=== PATIENT | female | born 2005 | race African-American/Black ===

== ENCOUNTER 2024-06-04 11:07 | Inpatient (IN) ==
[2024-06-04 11:48] LABS: Hematocrit (blood only) 34.2 % (37.0-47.0); Hemoglobin 12.3 g/dl (12.0-16.0); Mean Corpuscular Hemoglobin 24.6 pg (25.0-34.0); Mean Corpuscular Volume 68.5 fL (80.0-100.0); Platelet Count 159 K/uL (130-400); RDW Coefficient of Variation 18.6 % (11.5-14.5); RDW Standard Deviation 45.7 fL (36.4-46.3); Red Blood Count 4.99 M/uL (4.20-5.40); White Blood Count 8.07 K/ul (4.8-10.8)
[2024-06-04 12:11] LABS: Alanine Aminotransferase 6 U/L (7-52); Albumin Globulin Ratio 1.3 (0.9-2); Albumin Level 4.5 gm/dl (3.4-5.0); Alkaline Phosphatase 41 U/L (34-104); Anion Gap 5 (3-11); Aspartate Aminotransferase 15 U/L (13-39); BUN Creatinine Ratio 12.7 (10-20); Basophils # (auto) 0.04 K/uL (0.00-0.20); Basophils % (auto) 0.5 %; Bilirubin,Total 2.2 mg/dl (0.2-1.0); Blood Urea Nitrogen 9 mg/dl (6-23); Calcium 9.5 mg/dl (8.6-10.3); Carbon Dioxide 26 mmol/L (21-32); Chloride 107 mmol/L (98-107); Creatinine Clr Calc Pharmacy 153.9 ml/min; Eosinophils # (auto) 0.05 K/uL (0.00-0.50); Eosinophils % (auto) 0.6 %; Globulin 3.6 gm/dl (2.5-4.0); Glucose 92 mg/dl (70-99(Fasting)); Immature Granulocytes # (auto) 0.03 K/uL (0.01-0.20); Immature Granulocytes % (auto) 0.4 %; Lipase 14 U/L (11-82); Lymphocytes # (auto) 1.86 K/uL (1.20-3.40); Microcytosis Present; Monocytes # (auto) 0.41 K/uL (0.11-0.59); Monocytes % (auto) 5.1 %; Neutrophils # (auto) 5.68 K/uL (1.40-6.50); Neutrophils % (auto) 70.4 %; Polychromasia 1+; Sodium 138 mmol/L (136-145); Target Cells 3+; Total Protein 8.1 gm/dl (6.0-8.3)
[2024-06-04 12:17] LABS: Troponin I High Sensitivity < 2.3 pg/ml (0-14)
--- NOTE | 2024-06-04 13:11 | Electrocardiogram Report ---
Test Reason : Blood Pressure : */* mmHG Vent. Rate : 86 BPM Atrial Rate : 86 BPM P-R Int : 132 ms QRS Dur : 78 ms QT Int : 352 ms P-R-T Axes : 63 49 48 degrees QTcB Int : 421 ms Sinus rhythm with occasional Premature ventricular complexes Otherwise normal ECG No previous ECGs available Confirmed by Joaquín Crews ([id number]) on 06/04/2024 1:11:34 PM Referred By: Confirmed By: Joaquín Crews
--- NOTE | 2024-06-04 13:44 | XRay Report ---
XR chest 2V PA/lateral CLINICAL HISTORY: CHEST PAIN, SICKLE CELL COMPARISON STUDY: None FINDINGS: A single view frontal projection chest is submitted for review. There is no lateral include d with the study. Examination demonstrates no acute cardiopulmonary process. There is no airspace opa city or pleural effusion. There is no pneumothorax. Heart size and pulmonary vascularity are unremark able. IMPRESSION: Negative single view chest ACT 112: Negative or not required by law. Electronically signed by: Francisca Wyman M.D. 06/04/2024 1:43 PM
[2024-06-04 14:26] LABS: Pregnancy Test, Serum Negative (Negative)
[2024-06-04] MEDS: KETOROLAC TROMETHAMINE 15 MG/ML VIAL IV ONE ×2 (14:42→16:35)
--- NOTE | 2024-06-04 16:04 | Emergency Department Note ---
Impression & Plan Sickle cell pain crisis, Chest pain, Hyperbilirubinemia ED Provider Note NAME: ALEJANDRO VAN AGE: 18 SEX: F : 2005 ARRIVES VIA: Walk-In INFORMANT: Patient, friends at bedside ED PROVIDER(S): Frandy Sanchez MD CHIEF COMPLAINT: Chest pain MEDICAL DECISION MAKING: Patient presents due to concern for chest pains. IV was established and blood work was obtained. No significant improvement after IV Toradol. I did review the patient's pain plan which recommended Dilaudid Benadryl Zofran fluids Toradol and Tylenol. I did order fluids Dilaudid Zofran Toradol and Tylenol. Benadryl was just for itching as needed. Patient had complained of some left upper abdominal pain. The patient is not peritonitic has no other further pain. Patient does have prior history of splenomegaly. The patient was reassessed. The patient was offered additional pain medication but declined at this time and stated that she wanted to complete her IV fluids. The patient's blood work shows a normal white count hemoglobin and platelet count. Patient's kidney functions unremarkable with normal electrolytes. Troponin negative. Bilirubin of 2.2. The patient was able to access her prior records from admission at [facility] which showed a bilirubin 1.6. The patient was amenable to trying a p.o. oxycodone as this would be something that she would use for pain control at home. Patient does feel as though her symptoms are consistent with her pain crises. Chest x-ray is clear. Patient was reassessed and still was having pain so was ordered additional 1 mg of IV Dilaudid and additional IV fluids. I was asked to assess the patient at the bedside as the patient was having worsening pain. Patient with clear breath sounds bilaterally. Given the patient's significant discomfort with the pain in her back a CT angiography of the chest was ordered. Patient was ordered additional IV Dilaudid 1 mg. Patient did have improvement in her symptoms. I did inform the patient's mother of the plan of care and she was comfortable with this plan of care. The patient did develop some dizziness and nausea. The patient was ordered additional IV fluids and IV Benadryl and Zofran. Patient CT angiography of the chest is nondiagnostic for PE. No definite airspace consolidation. No evidence of obvious dissection noted no evidence of obvious aneurysm noted. I did inform the patient of the findings. Given the patient's required repeated doses of IV pain medication to believe the patient would benefit from admission at this time. I did speak the on-call hospital service Dr. Pedraza and the patient was admitted to the medicine service. Discussion w/ other healthcare providers: Deonna Wang PA-C and Dr. Pedraza inpatient medicine service Prior /Outside records reviewed: None Differential diagnosis: Cardiac ischemia, aortic dissection, pulmonary embolism, pneumothorax, pneumonia, pericarditis, myocarditis, GERD, cholecystitis, pancreatitis, musculoskeletal, as well as other pathologies were considered. Diagnostics, as interpreted by me: ECG: Sinus with PVCs, rate of 86, normal intervals, normal axis, no obvious ST elevations. No prior EKGs for comparison. Cardiac monitoring: An order was placed for continuous cardiac monitoring. The monitor shows a rate of 87 with sinus rhythm. Patient was placed on pulse oximetry Medical decision rules: None Imaging studies: I informally interpreted the patient's chest x-ray does not show obvious pneumonia or pneumothorax with formal report to follow. HPI: Patient presents due to concern for chest pains. Patient reports that chest pain has been ongoing since yesterday. Has been fairly constant localized in the left chest but seem to be moving to the middle of the chest. Patient also does have some left upper quadrant pain. Patient reports that she does have a history of splenomegaly. Patient states that she did take some ibuprofen at home but without significant improvement in symptoms. The patient does have a known history of sickle cell disease currently off of hydroxyurea which was at the discretion of her visual basic programmer with whom she follows at [facility] in [facility]. Patient denies any cough or fever. Patient also does have some muscle aches. Patient denies any known sick contacts and recent travel. No cough or fever. Patient reports that this does feel similar to her typical pain crises. The patient states the pain is somewhat reproducible. No prior history of heart or lung disease. No leg swelling or calf pain. No recent surgeries procedures or hospitalizations and no recent long car plane travel. Patient does follow with a Dr. Fair with hematology. Patient reportedly had negative mono as well as viral testing completed at [facility] and was referred here. PAST MEDICAL HISTORY: Sickle cell disease, splenomegaly PAST SURGICAL HISTORY: No pertinent past surgical history SOCIAL HISTORY: [employer] student. Denies alcohol tobacco or drug use. HOME MEDICATIONS: See Below ALLERGIES: See Below VITALS: See Below PHYSICAL EXAMINATION: GENERAL: NAD, non-toxic. Wearing glasses. EYE EXAM: Normal conjunctiva. PERRL, no anisocoria and EOM's grossly intact w/o pain. OROPHARYNX: Moist mucus membranes, grossly normal dentition. NECK: Trachea midline, no stridor. Supple, no nuchal rigidity, no adenopathy, non-tender. No signs of meningismus. FROM of the neck with good chin to chest and neck extension. Chest: Mild reproducible sternal pain without obvious crepitus. LUNGS: Clear to auscultation. Normal chest wall mechanics. HEART: NSR, no MRG. ABDOMEN: Abdomen soft, left upper quadrant tenderness without epigastric or lower abdominal pain, no masses, no rebound or guarding. BACK: No CVA TTP. SKIN: No rashes and no bruising. UPPER EXTREMITIES: Upper extremities are grossly normal. LOWER EXTREMITIES: Grossly normal, no edema. Negative Homans' sign bilaterally. NEURO EXAM: A&O x3, cranial nerves II-XII grossly intact, normal speech, moves all 4 extremities. Past Med/Surg History Problem List (Updated 06/05/24 @ 00:01 by Frandy Sanchez MD) Hyperbilirubinemia (Acute) Chest pain (Acute) Sickle cell pain crisis (Acute) Social History Smoking Status: Never smoker Preferred Language: [place]ralt[place] Feels Safe at Home: Yes Allergies Allergies Allergy/AdvReac Type Severity Reaction Status Date / Time No Known Allergies Allergy Unverified 06/04/24 14:43 Results & Data (ED) Vital Signs Vital Signs - 24 hr 06/04/24 11:17 06/04/24 15:37 06/04/24 15:37 Temperature 36.7 C Temperature Source Temporal Artery Scan Pulse Rate 91 H Pulse Rate [Apical] 95 H Pulse Rhythm [Apical] Respiratory Rate 18 18 Respiratory Effort / Characteristics Non-Labored Spontaneous Non-Labored Spontaneous Respiratory Depth Normal Normal Respiratory Pattern Regular Regular Blood Pressure [Right Arm] 133/72 Blood Pressure Mean [Right Arm] 92 Blood Pressure Position [Right Arm] Pulse Oximetry 97 96 96 Oxygen Delivery Method Room Air Room Air Room Air Oxygen Flow Rate 0 Sepsis Recent Fever Within 48 Hours No Sepsis New/Unexplained Change in Mental Status N/A Sepsis Action Taken by Nursing No Action Required 06/04/24 15:37 06/04/24 15:57 06/04/24 17:00 Temperature Temperature Source Pulse Rate 86 Pulse Rate [Apical] 87 Pulse Rhythm [Apical] Respiratory Rate 18 Respiratory Effort / Characteristics Non-Labored Spontaneous Respiratory Depth Normal Respiratory Pattern Regular Blood Pressure [Right Arm] 130/96 Blood Pressure Mean [Right Arm] 107 Blood Pressure Position [Right Arm] Pulse Oximetry 96 96 Oxygen Delivery Method Room Air Room Air Oxygen Flow Rate Sepsis Recent Fever Within 48 Hours Sepsis New/Unexplained Change in Mental Status Sepsis Action Taken by Nursing 06/04/24 18:59 06/04/24 19:29 06/04/24 20:03 Temperature Temperature Source Pulse Rate 94 H Pulse Rate [Apical] 108 H 84 Pulse Rhythm [Apical] Respiratory Rate 16 18 Respiratory Effort / Characteristics Non-Labored Spontaneous Non-Labored Spontaneous Respiratory Depth Normal Normal Respiratory Pattern Blood Pressure [Right Arm] 126/71 147/109 H Blood Pressure Mean [Right Arm] 89 121 Blood Pressure Position [Right Arm] Lying Lying Pulse Oximetry 100 98 Oxygen Delivery Method Room Air Room Air Oxygen Flow Rate Sepsis Recent Fever Within 48 Hours Sepsis New/Unexplained Change in Mental Status Sepsis Action Taken by Nursing 06/04/24 21:32 06/04/24 22:29 06/04/24 23:33 Temperature Temperature Source Pulse Rate 104 H Pulse Rate [Apical] 96 H 108 H Pulse Rhythm [Apical] Regular Respiratory Rate 16 20 Respiratory Effort / Characteristics Non-Labored Spontaneous Non-Labored Spontaneous Respiratory Depth Normal Normal Respiratory Pattern Blood Pressure [Right Arm] 149/91 H 123/91 Blood Pressure Mean [Right Arm] 110 101 Blood Pressure Position [Right Arm] Pulse Oximetry 96 98 Oxygen Delivery Method Room Air Room Air Oxygen Flow Rate Sepsis Recent Fever Within 48 Hours Sepsis New/Unexplained Change in Mental Status Sepsis Action Taken by [facility] Medications Current Medication List: was personally reviewed by me Laboratory Data Attestation: I reviewed the patient's lab results. 06/04/24 11:33 06/04/24 11:33 Lab Results 06/04/24 Range/Units 11:33 WBC 8.07 (4.8-10.8) K/ul RBC 4.99 (4.20-5.40) M/uL Hgb 12.3 (12.0-16.0) g/dl Hct 34.2 L (37.0-47.0) % MCV 68.5 L (80.0-100.0) fL MCH 24.6 L (25.0-34.0) pg MCHC 36.0 (32.0-36.0) g/dL RDW Std Deviation 45.7 (36.4-46.3) fL RDW Coeff of Eddie 18.6 H (11.5-14.5) % Plt Count 159 (130-400) K/uL Immature Gran % (Auto) 0.4 % Neut % (Auto) 70.4 % Lymph % (Auto) 23.0 % [place] % (Auto) 5.1 % Eos % (Auto) 0.6 % Baso % (Auto) 0.5 % Neut # (Auto) 5.68 (1.40-6.50) K/uL Lymph # (Auto) 1.86 (1.20-3.40) K/uL [place] # (Auto) 0.41 (0.11-0.59) K/uL Eos # (Auto) 0.05 (0.00-0.50) K/uL Baso # (Auto) 0.04 (0.00-0.20) K/uL Immature Gran # (Auto) 0.03 (0.01-0.20) K/uL Polychromasia 1+ Microcytosis Present Target Cells 3+ Sodium 138 (136-145) mmol/L Potassium 4.0 (3.5-5.1) mmol/L Chloride 107 (98-107) mmol/L Carbon Dioxide 26 (21-32) mmol/L Anion Gap 5 (3-11) BUN 9 (6-23) mg/dl Creatinine 0.71 (0.6-1.2) mg/dl Est Cr Clr Drug Dosing 153.9 ml/min eGFR 125.53 BUN/Creatinine Ratio 12.7 (10-20) Glucose 92 (70-99(Fasting)) mg/dl Calcium 9.5 (8.6-10.3) mg/dl Total Bilirubin 2.2 H (0.2-1.0) mg/dl AST 15 (13-39) U/L ALT 6 L (7-52) U/L Alkaline Phosphatase 41 (34-104) U/L Troponin I High Sens < 2.3 (0-14) pg/ml Total Protein 8.1 (6.0-8.3) gm/dl Albumin 4.5 (3.4-5.0) gm/dl Globulin 3.6 (2.5-4.0) gm/dl Albumin/Globulin Ratio 1.3 (0.9-2) Lipase 14 (11-82) U/L HCG, Qual Negative (Negative) Administered Medications Discontinued Medications Acetaminophen (Acetaminophen 500 Mg Tab) 1,000 mg PO NOW STA Stop: 06/04/24 16:22 Last Admin: 06/04/24 16:35 Dose: 1,000 mg Documented By: JI Diphenhydramine HCl (Diphenhydramine 50 Mg/Ml Vial) 12.5 mg IV NOW STA Stop: 06/04/24 21:49 Last Admin: 06/04/24 21:51 Dose: 12.5 mg Documented By: LAN Hydromorphone HCl (Hydromorphone Inj 1 Mg/Ml Syringe) 1 mg IV NOW STA Stop: 06/04/24 16:22 Last Admin: 06/04/24 16:35 Dose: 1 mg Documented By: JI Hydromorphone HCl (Hydromorphone Inj 1 Mg/Ml Syringe) 1 mg IV NOW STA Stop: 06/04/24 19:58 Last Admin: 06/04/24 20:01 Dose: 1 mg Documented By: LAN Hydromorphone HCl (Hydromorphone Inj 1 Mg/Ml Syringe) 1 mg IV NOW STA Stop: 06/04/24 20:46 Last Admin: 06/04/24 20:50 Dose: 1 mg Documented By: ALN Sodium Chloride (Nss) 1,000 mls @ 999 mls/hr IV .Q1H1M ONE Stop: 06/04/24 17:21 Last Infusion: 06/04/24 18:56 Dose: Infused Documented By: Admin: 06/04/24 16:36 Dose: 999 mls/hr Documented By: JI Sodium Chloride (Nss) 500 mls @ 999 mls/hr IV .Q31M ONE Stop: 06/04/24 20:27 Last Infusion: 06/04/24 20:39 Dose: Infused Documented By: Admin: 06/04/24 20:01 Dose: 999 mls/hr Documented By: LAN Sodium Chloride (Nss) 1,000 mls @ 999 mls/hr IV .Q1H1M ONE Stop: 06/04/24 22:48 Last Infusion: 06/04/24 22:55 Dose: Infused Documented By: Admin: 06/04/24 21:51 Dose: 999 mls/hr Documented By: LAN Ketorolac Tromethamine (Ketorolac Tromethamine 15 Mg/Ml Vial) 10 mg IV NOW ONE Stop: 06/04/24 13:58 Last Admin: 06/04/24 14:42 Dose: 10 mg Documented By: JAIRON Ketorolac Tromethamine (Ketorolac Tromethamine 15 Mg/Ml Vial) 20 mg IV NOW ONE Stop: 06/04/24 16:22 Last Admin: 06/04/24 16:35 Dose: 20 mg Documented By: JI Ondansetron HCl (Ondansetron Inj 2 Mg/Ml 2 Ml Vial) 4 mg IV NOW STA Stop: 06/04/24 19:05 Last Admin: 06/04/24 19:08 Dose: 4 mg Documented By: LAN Ondansetron HCl (Ondansetron Inj 2 Mg/Ml 2 Ml Vial) 4 mg IV NOW STA Stop: 06/04/24 21:49 Last Admin: 06/04/24 21:51 Dose: 4 mg Documented By: LAN Oxycodone HCl (Oxycodone Hcl Ir 5 Mg Tab (Immediate Release)) 5 mg PO NOW STA Stop: 06/04/24 18:47 Last Admin: 06/04/24 18:59 Dose: 5 mg Documented By: LAN Imaging Data Radiologist's Impression: Chest X-Ray 06/04/24 13:02 XR chest 2V PA/lateral CLINICAL HISTORY: CHEST PAIN, SICKLE CELL COMPARISON STUDY: None FINDINGS: A single view frontal projection chest is submitted for review. There is no lateral included with the study. Examination demonstrates no acute cardiopulmonary process. There is no airspace opacity or pleural effusion. There is no pneumothorax. Heart size and pulmonary vascularity are unremarkable. IMPRESSION: Negative single view chest ACT 112: Negative or not required by law. Electronically signed by: Francisca Wyman M.D. 06/04/2024 1:43 PM Chest CTA 06/04/24 20:45 Exam(s): CTA CHEST EXAM: CT Angiography Chest With Intravenous Contrast CLINICAL HISTORY: Evaluate for PE. TECHNIQUE: Axial computed tomographic angiography images of the chest with intravenous contrast. CTDI is 24.386 mGy and DLP is 678.56 mGy-cm. Automated exposure control was utilized for the study. A dose lowering technique was utilized adhering to the principles of ALARA. MIP reconstructed images were created and reviewed. COMPARISON: No relevant prior studies available. FINDINGS: Limitations: There is diffuse respiratory artifact, which degrades image quality throughout the examination. Pulmonary arteries: The examination is essentially nondiagnostic for evaluation of potential pulmonary embolism given the heterogeneous enhancement pattern of the pulmonary artery tree and extensive respiratory artifact. Aorta: No acute findings. Motion artifact in the ascending thoracic aorta. No thoracic aortic dissection is identified. No thoracic aortic aneurysm. Lungs: No definite focal airspace consolidation, accounting for limitations with respiratory artifact. Pleural space: Unremarkable. No significant effusion. No pneumothorax. Heart: The cardiac chambers are within normal limits. No pericardial effusion. Bones/joints: No acute fracture. No dislocation. Soft tissues: Unremarkable. Lymph nodes: Unremarkable. No enlarged lymph nodes. IMPRESSION: 1. The examination is essentially nondiagnostic for evaluation of potential pulmonary embolism given the heterogeneous enhancement pattern of the pulmonary artery tree and extensive respiratory artifact. 2. No definite focal airspace consolidation, accounting for limitations with respiratory artifact. No pleural effusion or pneumothorax. Electronically signed by: Alejandro Chacon MD 06/04/24 22:54 PM Discharge Plan Visit Data Chief Complaint: Chest Pain Stated Complaint: CHEST PAIN, HAS SICKLE CELL, SORE THROAT, BODY PN ED Provider: Frandy Sanchez Discharge Problem: Sickle cell pain crisis, Chest pain, Hyperbilirubinemia Forms Stand Alone Forms: [facility] Referrals Referrals: PCP,NO [Physician] - Discharge Problem: Chest pain Qualifiers: Chest pain type: unspecified Qualified Code(s): R07.9 - Chest pain, unspecified
[2024-06-04] MEDS: ACETAMINOPHEN 500 MG TAB PO STA (16:35)
[2024-06-04] MEDS: HYDROmorphone INJ 1 MG/ML SYRINGE IV STA ×3 (16:35→20:50)
[2024-06-04] MEDS: SODIUM CHLORIDE 0.9% 1,000 ML IV ONE ×2 (16:36→21:51)
[2024-06-04] MEDS: oxyCODONE HCL IR 5 MG TAB (IMMEDIATE RELEASE) PO STA (18:59)
[2024-06-04] MEDS: ONDANSETRON INJ 2 MG/ML 2 ML VIAL IV STA ×2 (19:08→21:51)
[2024-06-04] MEDS: SODIUM CHLORIDE 0.9% 500 ML IV ONE (20:01)
[2024-06-04] MEDS: diphenhydrAMINE 50 MG/ML VIAL IV STA (21:51)
--- NOTE | 2024-06-04 22:55 | CT Scan Report ---
Exam(s): CTA CHEST EXAM: CT Angiography Chest With Intravenous Contrast CLINICAL HISTORY: Evaluate for PE. TECHNIQUE: Axial computed tomographic angiography images of the chest with intravenous contrast. CTDI is 24.386 mGy and DLP is 678.56 mGy-cm. Automated exposure control was utilized for the study. A dose lowering technique was utilized adhering to the principles of ALARA. MIP reconstructed images were created and reviewed. COMPARISON: No relevant prior studies available. FINDINGS: Limitations: There is diffuse respiratory artifact, which degrades image quality throughout the examination. Pulmonary arteries: The examination is essentially nondiagnostic for evaluation of potential pulmonary embolism given the heterogeneous enhancement pattern of the pulmonary artery tree and extensive respiratory artifact. Aorta: No acute findings. Motion artifact in the ascending thoracic aorta. No thoracic aortic dissection is identified. No thoracic aortic aneurysm. Lungs: No definite focal airspace consolidation, accounting for limitations with respiratory artifact. Pleural space: Unremarkable. No significant effusion. No pneumothorax. Heart: The cardiac chambers are within normal limits. No pericardial effusion. Bones/joints: No acute fracture. No dislocation. Soft tissues: Unremarkable. Lymph nodes: Unremarkable. No enlarged lymph nodes. IMPRESSION: 1. The examination is essentially nondiagnostic for evaluation of potential pulmonary embolism given the heterogeneous enhancement pattern of the pulmonary artery tree and extensive respiratory artifact. 2. No definite focal airspace consolidation, accounting for limitations with respiratory artifact. No pleural effusion or pneumothorax. Electronically signed by: Alejandro Chacon MD 06/04/24 22:54 PM
--- NOTE | 2024-06-04 23:08 | History & Physical Report ---
Date of Service June 04, 2024 Assessment & Plan (1) Sickle cell pain crisis: Plan 18-year-old female PMHx sickle cell disease presenting to ED for chest pain x 1 day with associated LUQ pain and myalgias. Was seen at [facility], and referred to ED. Reports she has been having fairly consistent pain in the L chest that has been ongoing since the Tuesday MECHANIC/WELDER, with radiation to middle of chest. States that her most recent crises was 1 month ago, affecting her R arm and described the symptoms as numbness and tingling for approximately 1 week. No history of acute chest syndrome. No longer on hydroxyurea secondary to rash that she got over her torso while taking. ED evaluation reveals no indications of infection, grossly unremarkable CMP with exception of total bilirubin 2.2 and ALT 6. CXR was negative for acute findings, and chest CTA is nondiagnostic. EKG reveals sinus rhythm with PVCs and rate of 86 bpm. Patient was provided with 2.5L NSS in ED as well as oxycodone 5 mg p.o., Zofran 4 mg IV x 2, ketorolac 30 mg IV total, Dilaudid 3 mg IV total, and Tylenol 1 g. #Sickle cell crisis H/o sickle cell disease; ER pain management plan includes Dilaudid 0.8mg IV q60 min x3-4 doses, Benadryl 50mg prn, Zofran, IVF 1/2 NS, Toradol 30mg, and Tylenol. Last crises approximately 1 month ago affecting R arm. Pain pattern different from prior crises, she has never had back pain with prior crises. No h/o ACS. Previously on hydroxyurea but was discontinued because of rash across torso by pie filler at [facility] in [facility]. Of note, patient reports that heart rate went into 140s to 160s unprovoked. CTA chest nondiagnostic. Remains tachycardic, some pleuritic chest pain noted during physical exam. - CBC grossly unremarkable with H&H 12.3/34.2; CMP bilirubin 2.2 and ALT 6 otherwise WNL; lactate dehydrogenase pending, reticulocytes pending - CXR w/o infiltrates or acute findings; Chest CTA reports stating imaging is nondiagnostic for evaluation of potential PE given heterogeneous enhancement pattern of the pulmonary artery tree as well as extensive respiratory artifact. - IVF w/ 1/2 NSS @ 125 mL/hr - IC + encourage ambulation to prevent acute chest; O2 ordered - Pain management as ordered - Dilaudid, Toradol, Tylenol, Benadryl (itching), Zofran, IVF (as above) - No evidence ACS at admission- No fever, tachypnea, or hypoxemia; some pleuritic chest pain - Consult heme/onc if needed, no consult placed at admission - No current indications for antibiotics; H&H appearing stable, will trend in AM #? PE Having chest pain/pressure, radiating to back and w/ associated SOB. Tachycardic, otherwise hemodynamically stable. No h/o VTE; Wells criteria 4.5 (PE likely, HR > 100). - CTA chest nondiagnostic but given history and change in normal crises symptoms-> Lovenox started therapeutically until in house radiologist can confirm NO PE present - No h/o PE/DVT Dispo: Admit, PCU VTE prophylaxis: Lovenox (therapeutic dosing) This document was dictated utilizing Rundown. Please excuse any grammatical errors that may be secondary to use of this software. Admission and Anticipated Discharge Date Admission Date: 06/04/2024 History of Present Illness Chief Complaint: Chest pain Primary Care Provider: KASSIDY JIHAN 18-year-old female PMHx sickle cell disease presenting to ED for chest pain x 1 day with associated LUQ pain and myalgias. Was seen at [facility], and referred to ED. Reports she has been having fairly consistent pain in the L chest that has been ongoing since the Tuesday MECHANIC/WELDER, with radiation to middle of chest. States that the pain worsened over the weekend specifically on the day prior to arrival, so she went to [facility] to have testing completed and was encouraged to come to ED. Also reporting LUQ abdominal pain with associated history of splenomegaly. Has utilized ibuprofen at home but has not noticed much improvement in her symptoms. During admitting evaluation, patient states that her pain is currently 9/10 on the pain scale, and has worsened since her last dose of pain medications. Additionally she is having some SOB, and it is noted that when she takes a deep breath she feels that this is a stabbing type pain. At rest, patient describes the pain as jabbing and heavy pressure on her central chest. Did have 3 episodes of emesis with ongoing nausea. 1 episode of dizziness when she was resting in the bed, no lightheadedness or feeling of syncope. States that her most recent crises was 1 month ago, affecting her R arm and described the symptoms as numbness and tingling for approximately 1 week. Of note, male in room during the visit states that the patient's heart rate jumped into the 160s and came down to 140s and this lasted for approximate 30 to 40 minutes until settling in the 100s-110s. During the time of this episode, the patient states that she was having pain but did not feel any additional symptoms. No history of acute chest syndrome. No longer on hydroxyurea secondary to rash that she got over her torso while taking. Denying palpitations, diarrhea/constipation, numbness/tingling, fever or chills. Is having slight sore throat and coughing, no known sick contacts. Testing for mono, strep, flu, and covid negative at outpatient evaluation. ED evaluation reveals no indications of infection, grossly unremarkable CMP with exception of total bilirubin 2.2 and ALT 6. CXR was negative for acute findings, and chest CTA is nondiagnostic. EKG reveals sinus rhythm with PVCs and rate of 86 bpm. Patient was provided with 2.5L NSS in ED as well as oxycodone 5 mg p.o., Zofran 4 megs IV x 2, ketorolac 30 mg IV total, Dilaudid 3 mg IV total, and Tylenol [address] Pedraza's attestation for adjustments/additions to treatment plan. Allergies Allergy/AdvReac Type Severity Reaction Status Date / Time No Known Allergies Allergy Unverified 06/05/24 00:02 Home Medications Medication Instructions Recorded Confirmed Type No Known Home Medications 06/05/24 06/05/24 History Past Med/Surg History Problem List Hyperbilirubinemia (Acute) Chest pain (Acute) Sickle cell pain crisis (Acute) Social History Smoking Status: Never smoker Preferred Language: Kyrgyz Feels Safe at Home: Yes Review of Systems Review of Systems: All systems reviewed & are unremarkable except as noted in Subjective Physical Exam Physical Exam: General: No acute distress Skin: Warm and dry Head: Normocephalic, atraumatic Eyes: PERRL, conjunctivae clear, sclera non-icteric; EOM intact ENT: External ear and ear canal without swelling; nose atraumatic; good de ntition, tongue normal appearance, pharynx normal Neck: Supple, no LAD Cardio: Tachycardic, regular rhythm, no M/G/R, S1 and S2 normal Resp: No respiratory distress, Lungs CTA in all lobes bilaterally, no wheezes, rales, or rhonchi Abdomen: Soft, symmetric, nontender; no distention; No masses or hepatosplenomegaly; Bowel sounds normoactive MSK: No deformities, full ROM throughout; pulses palpable and equal; no edema; no calf tenderness Neuro: Awake, alert; CN grossly intact Psych: Soft spoken. Appropriate mood and affect; good judgement and insight. Male friend present in room at time of visit. Results & Data Results & Data Vital Signs (Past 12 Hours) Vital Signs Temp Pulse Pulse Resp BP Pulse Ox O2 Del Method 06/04/24 22:29 108 H 20 123/91 98 Room Air 06/04/24 21:32 96 H 16 149/91 H 96 Room Air 06/04/24 20:03 84 18 147/109 H 98 Room Air 06/04/24 19:29 94 H 06/04/24 18:59 108 H 16 126/71 100 Room Air 06/04/24 17:00 87 18 130/96 96 Room Air 06/04/24 15:57 86 06/04/24 15:37 96 Room Air 06/04/24 15:37 95 H 18 133/72 96 Room Air 06/04/24 15:37 96 Room Air 06/04/24 11:17 36.7 C 91 H 18 97 Room Air O2 Flow Rate 06/04/24 22:29 06/04/24 21:32 06/04/24 20:03 06/04/24 19:29 06/04/24 18:59 06/04/24 17:00 06/04/24 15:57 06/04/24 15:37 06/04/24 15:37 06/04/24 15:37 0 06/04/24 11:17 Laboratory Results 06/04/24 11:33 WBC 8.07 RBC 4.99 Hgb 12.3 Hct 34.2 L MCV 68.5 L MCH 24.6 L MCHC 36.0 RDW Std Deviation 45.7 RDW Coeff of Eddie 18.6 H Plt Count 159 Immature Gran % (Auto) 0.4 Neut % (Auto) 70.4 Lymph % (Auto) 23.0 Cannon % (Auto) 5.1 Eos % (Auto) 0.6 Baso % (Auto) 0.5 Neut # (Auto) 5.68 Lymph # (Auto) 1.86 Cannon # (Auto) 0.41 Eos # (Auto) 0.05 Baso # (Auto) 0.04 Immature Gran # (Auto) 0.03 Polychromasia 1+ Microcytosis Present Target Cells 3+ Sodium 138 Potassium 4.0 Chloride 107 Carbon Dioxide 26 Anion Gap 5 BUN 9 Creatinine 0.71 Est Cr Clr Drug Dosing 153.9 eGFR 125.53 BUN/Creatinine Ratio 12.7 Glucose 92 Calcium 9.5 Total Bilirubin 2.2 H AST 15 ALT 6 L Alkaline Phosphatase 41 Troponin I High Sens < 2.3 Total Protein 8.1 Albumin 4.5 Globulin 3.6 Albumin/Globulin Ratio 1.3 Lipase 14 HCG, Qual Negative Diagnostic Findings Chest X-Ray 06/04/24 13:02 XR chest 2V PA/lateral CLINICAL HISTORY: CHEST PAIN, SICKLE CELL COMPARISON STUDY: None FINDINGS: A single view frontal projection chest is submitted for review. There is no lateral included with the study. Examination demonstrates no acute cardiopulmonary process. There is no airspace opacity or pleural effusion. There is no pneumothorax. Heart size and pulmonary vascularity are unremarkable. IMPRESSION: Negative single view chest ACT 112: Negative or not required by law. Electronically signed by: Francisca Wyman M.D. 06/04/2024 1:43 PM Chest CTA 06/04/24 20:45 Exam(s): CTA CHEST EXAM: CT Angiography Chest With Intravenous Contrast CLINICAL HISTORY: Evaluate for PE. TECHNIQUE: Axial computed tomographic angiography images of the chest with intravenous contrast. CTDI is 24.386 mGy and DLP is 678.56 mGy-cm. Automated exposure control was utilized for the study. A dose lowering technique was utilized adhering to the principles of ALARA. MIP reconstructed images were created and reviewed. COMPARISON: No relevant prior studies available. FINDINGS: Limitations: There is diffuse respiratory artifact, which degrades image quality throughout the examination. Pulmonary arteries: The examination is essentially nondiagnostic for evaluation of potential pulmonary embolism given the heterogeneous enhancement pattern of the pulmonary artery tree and extensive respiratory artifact. Aorta: No acute findings. Motion artifact in the ascending thoracic aorta. No thoracic aortic dissection is identified. No thoracic aortic aneurysm. Lungs: No definite focal airspace consolidation, accounting for limitations with respiratory artifact. Pleural space: Unremarkable. No significant effusion. No pneumothorax. Heart: The cardiac chambers are within normal limits. No pericardial effusion. Bones/joints: No acute fracture. No dislocation. Soft tissues: Unremarkable. Lymph nodes: Unremarkable. No enlarged lymph nodes. IMPRESSION: 1. The examination is essentially nondiagnostic for evaluation of potential pulmonary embolism given the heterogeneous enhancement pattern of the pulmonary artery tree and extensive respiratory artifact. 2. No definite focal airspace consolidation, accounting for limitations with respiratory artifact. No pleural effusion or pneumothorax. Electronically signed by: Alejandro Chacon MD 06/04/24 22:54 PM Medications Administered 2.5L NSS Zofran 4 megs IV x 2 Diphenhydramine 12.5 mg IV x 1 Hydromorphone 1 mg IV x 3 Ondansetron 4 mg IV x 2 Oxycodone 5 mg p.o. x 1 Acetaminophen 1 g p.o. x 1 Ketorolac 20 mg IV, 10 mg IV ECG Additional Comments: cc: ~ DICTATED BY: Joaquín Crews MD Test Reason : Blood Pressure : */* mmHG Vent. Rate : 86 BPM Atrial Rate : 86 BPM P-R Int : 132 ms QRS Dur : 78 ms QT Int : 352 ms P-R-T Axes : 63 49 48 degrees QTcB Int : 421 ms Sinus rhythm with occasional Premature ventricular complexes Otherwise normal ECG No previous ECGs available Confirmed by Joaquín Crews ([id number]) on 06/04/2024 1:11:34 PM Referred By: Confirmed By: Joaquín Crews Code Status & VTE Plan Code Status Full Supervising Physician Co-Signing Physician Notes Patient seen and examined, chart reviewed, case discussed with BENJI Wang and I agree with the assessment and plan as above. In brief, patient is a 18yo female with SSA presenting with left sided and substernal chest discomfort with radiation into the back as well as some shortness of breath, tachycardia, sore throat. Patient's pain is somewhat similar to prior pain crises but the back pain is different. She also reports more shortness of breath. No reported history of blood clots. No leg pain, swelling or cramping On exam patient appears uncomfortable but in NAD SKin - no rash HEENT - MMM, neck supple, posterior pharynx erythematous, no exudates Heart - +S1/S2, regular, no m/r/g Lungs - CTA Abd - soft, NT/ND Ext - no tenderness, no edema Labs and images reviewed H/H is stable. Increased Tbili=2.2 CTA chest is non-diagnostic for PE due to respiratory artifact, ?timing of dye Assessment/Plan Sickle cell - pain crisis -Dilaudid 0.5mg IV q 4 hours scheduled -Dilaudid 0.25 - 0.5mg IV q 3 hours as needed for pain -Toradol 30mg IV q 6 hours scheduled for now -Benadryl PRN -Miralax BID -Hydration with 1/2 NSS -Supplemental O2 Concern for possible PE given tachycardia, SOB, pleuritic pain. Patient denies history of such -Lovenox 1mg/kg BID -Radiology to re-assess imaging in AM -Remainder as above PG Care Time/CCT Total # of Minutes Spent Total Time Spent with Patient: Total time spent is greater than 50% in coordination of care (as documented) at patient's floor/unit and/or counseling patient: Coding Level of Care Code 87874 INT INP/OBS CARE 3/75MIN Diagnoses Sickle cell pain crisis D57.00
[2024-06-04] MEDS ORDERED: KETOROLAC 30 MG/ML VIAL IV PRN (23:51)
[2024-06-04] MEDS ORDERED: HYDROmorphone INJ 0.5 MG/0.5 ML SYR IV PRN ×2 (23:51)
[2024-06-04] MEDS ORDERED: diphenhydrAMINE Capsule 25 MG CAP PO PRN (23:56)
[2024-06-05] MEDS ORDERED: HYDROmorphone INJ 0.5 MG/0.5 ML SYR IV PRN (00:15)
[2024-06-05] MEDS: CHLORASEPTIC (PHENOL) 1.4% SOLN 180 ML BTL MT PRN (00:30)
[2024-06-05] MEDS: HYDROmorphone INJ 1 MG/ML SYRINGE IV STA (00:30)
[2024-06-05] MEDS: ENOXAPARIN 100 MG/1ML SYR SC STA (00:30)
[2024-06-05] MEDS: COUGH DROP (SUGAR FREE) LOZ 24 LOZ/1 BOX BUCCAL STA (00:31)
[2024-06-05 00:41] LABS: Reticulocyte % 2.94 % (0.50-2.00)
[2024-06-05] MEDS: KETOROLAC 30 MG/ML VIAL IV SCH (01:09)
[2024-06-05] MEDS: SODIUM CHLORIDE 0.45 % 1,000 ML IV SCH (01:10)
[2024-06-05] MEDS: HYDROmorphone INJ 0.5 MG/0.5 ML SYR IV SCH (03:43)
[2024-06-05 07:18] LABS: Hematocrit (blood only) 29.3 % (37.0-47.0); Hemoglobin 10.2 g/dl (12.0-16.0)
[2024-06-05] MEDS: POLYETHYLENE (MIRALAX) 17 GM PACK PO SCH (08:28)
[2024-06-05 11:09] LABS: D Dimer 730 ug/L FEU (0-500)
[2024-06-05] MEDS: ACETAMINOPHEN 325 MG TAB PO PRN (11:21)
--- NOTE | 2024-06-05 11:25 | Ultrasound Report ---
BILATERAL LOWER EXTREMITY VENOUS DOPPLER CLINICAL HISTORY: sickle cell crisis COMPARISON STUDY: No previous studies for comparison. TECHNIQUE: Sonography of the deep venous system of the bilateral lower extremities was performed. Co mpression and augmentation were evaluated. FINDINGS: The bilateral common femoral, superficial femoral and popliteal veins were compressible. A ugmentation was normal. Flow was shown within the deep calf vessels. IMPRESSION: No evidence of deep venous thrombus within the bilateral lower extremities. ACT 112: Negative or not required by law. Electronically signed by: Joshua Oakley M.D. 06/05/2024 11:23 AM
[2024-06-05] MEDS ORDERED: ENOXAPARIN 100 MG/1ML SYR SC SCH (12:00)
[2024-06-05] MEDS: ONDANSETRON INJ 2 MG/ML 2 ML VIAL IV PRN (13:21)
--- NOTE | 2024-06-05 15:27 | Hospitalist Progress Note ---
Date of Service June 05, 2024 Assessment & Plan (1) Sickle cell pain crisis: Plan 18-year-old female PMHx sickle cell disease presenting to ED for chest pain x 1 day with associated LUQ pain and myalgias. Was seen at [facility], and referred to ED. Reports she has been having fairly consistent pain in the L chest that has been ongoing since the Tuesday MASTER RIGGER, with radiation to middle of chest. States that her most recent crises was 1 month ago, affecting her R arm and described the symptoms as numbness and tingling for approximately 1 week. No history of acute chest syndrome. No longer on hydroxyurea secondary to rash that she got over her torso while taking. ED evaluation reveals no indications of infection, grossly unremarkable CMP with exception of total bilirubin 2.2 and ALT 6. CXR was negative for acute findings, and chest CTA is nondiagnostic. EKG reveals sinus rhythm with PVCs and rate of 86 bpm. Patient was provided with 2.5L NSS in ED as well as oxycodone 5 mg p.o., Zofran 4 mg IV x 2, ketorolac 30 mg IV total, Dilaudid 3 mg IV total, and Tylenol 1 g. #Sickle cell crisis H/o sickle cell disease; ER pain management plan includes Dilaudid 0.8mg IV q60 min x3-4 doses, Benadryl 50mg prn, Zofran, IVF 1/2 NS, Toradol 30mg, and Ty lenol. Last crises approximately 1 month ago affecting R arm. Pain pattern different from prior crises, she has never had back pain with prior crises. No h/o ACS. Previously on hydroxyurea but was discontinued because of rash across torso by tool grinder at [facility]. Of note, patient reports that heart rate went into 140s to 160s unprovoked. CTA chest nondiagnostic. Remains tachycardic, some pleuritic chest pain noted during physical exam. -H&H 10.2/29.3; CMP bilirubin 2.2 and ALT 6 otherwise WNL; lactate dehydrogenase 253, reticulocytes 0.150 - CXR w/o infiltrates or acute findings - Chest CTA reports stating imaging is nondiagnostic for evaluation of potential PE given heterogeneous enhancement pattern of the pulmonary artery tree as well as extensive respiratory artifact. -Reached out to Dr. Oakley for 2nd read of CTA - he was unable to visualize PE, recommended repeat CTA vs doppler if concerned -Doppler US b/l LE negative for DVT - D-dimer mildly elevated at 730 on 06/05 - suspect secondary to sickle cell crisis. Given D-Dimer not overtly elevated above normal, patient is without shortness of breath, not requiring oxygen, and pain improving on pain medication PE less likely. -In the event patient does develop SOB requiring oxygen consider repeat imaging -Lovenox downgraded to DVT prophylaxis dose starting 06/05 -IVF w/ 04/19 NSS @ 125 mL/hr -IC + encourage ambulation to prevent acute chest; O2 ordered -Pain management as ordered - Dilaudid, Toradol, Tylenol, Benadryl (itching), Zofran, IVF (as above) -No evidence ACS at admission- No fever, tachypnea, or hypoxemia; some pleuritic chest pain -Hematology consulted, appreciate recommendations. -No current indications for antibiotics; H&H appearing stable Dispo: Admit, PCU VTE prophylaxis: Lovenox Admission and Anticipated Discharge Date Admission Date: June 04, 2024 Subjective Patient seen and examined this morning. Patient reports that she is still experiencing left sided chest pain and epigastric abdominal pain. She reports her back pain has subsided. She reports improvement w/ the Toradol and the Dilaudid after they are given but notes her symptoms do return. She denies SOB, nausea, vomiting. Physical Exam Constitutional: WD/WN, vitals as above Eyes: PERRL, conjunctivae normal, anicteric sclerae Respiratory: normal respiratory effort, lungs clear to auscultation Cardiovascular: RRR, no murmur, no edema Musculoskeletal: moves all extremities Psychiatric: A+Ox3, euthymic affect Results & Data Results & Data Vital Signs (Past 12 Hours) Vital Signs Temp Pulse Pulse Resp BP Pulse Ox O2 Del Method 06/05/24 14:45 83 06/05/24 11:08 36.7 C 107 H 17 100/83 99 Room Air 06/05/24 08:12 36.9 C 80 17 121/79 99 Room Air PG Care Time/CCT Total # of Minutes Spent Total Time Spent with Patient: Total time spent is greater than 50% in coordination of care (as documented) at patient's floor/unit and/or counseling patient: Coding Level of Care Code 99002 SUB INP/OBS CARE MIN Diagnoses Sickle cell pain crisis D57.00
--- NOTE | 2024-06-05 16:32 | Oncology Consultation ---
Date of Consultation June 05, 2024 Assessment & Plan (1) Sickle cell pain crisis: Recommend IV fluids, the patient is already on IV fluid supplementation. [id number] pain medication including hydromorphone as needed for pain. At this point it seems that there is an improvement in the patient's symptoms. Will consider initiating hydroxyurea on an outpatient basis to decrease the frequency of sickle cell pain crisis. No indications for blood transfusion as the hemoglobin is 10.3. Recommend monitoring CBC regularly Plan . Thank you for this interesting urological consult. Hematology will continue to follow the patient make appropriate recommendations. History of Present Illness Reason for Consultation: Sickle cell pain crisis Attending Physician: Hayden Sinha History of Present Illness the patient is a very pleasant 18-year-old woman who has a history of sickle cell disease, presented to the ED with severe chest pain, left upper quadrant pain and myalgias. She was initially seen and an urgent care and from there she was referred to the ED. On admission she had a chest x-ray which was negative as well as CT angiogram of the chest which was nondiagnostic. No recent fever or chills. No nausea vomiting. She has had sickle cell pain crisis in the past she did receive IV Toradol however that did not improve her symptoms. Hematology has been consulted to assist in management of this patient with known sickle cell disease presenting with sickle cell crisis. Review of medications reveals that the patient is not on hydroxyurea Allergies Allergy/AdvReac Type Severity Reaction Status Date / Time No Known Allergies Allergy Unverified 06/05/24 00:02 Home Medications Medication Instructions Recorded Confirmed Type No Known Home Medications 06/05/24 06/05/24 History Patient History Social History Smoking Status: Never smoker Second Hand Exposure: No; Do You Dip or Chew Tobacco: No; Tobacco Cessation Education Requested by Patient: No Hx Alcohol Use: No Hx Substance Use: No Preferred Language: Luxembourgish Communication Ability: Effective Aviation Technician Aircraft Required: No Beliefs That Will Affect Care: None Current Living Situation: Parent Feels Safe at Home: Yes Safety Concerns: Feels Safe At This Time Assistive Devices: None Review of Systems Review of Systems: Chest pain, epigastric abdominal pain, decreased appetite. Constitutional: as per Subjective / HPI Eyes: as per Subjective / HPI Ear, Nose, Mouth, Throat: as per Subjective / HPI Respiratory: as per Subjective / HPI Cardiovascular: as per Subjective / HPI Gastrointestinal: as per Subjective / HPI Genitourinary: as per Subjective / HPI Musculoskeletal: as per Subjective / HPI Integumentary: as per Subjective / HPI Neurologic: as per Subjective / HPI Psychiatric: as per Subjective / HPI Endocrine: as per Subjective / HPI Hematologic / Lymphatic: as per Subjective / HPI Allergy / Immunological: as per Subjective / HPI Physical Exam Constitutional: WD/WN, vitals as above Eyes: PERRL, conjunctivae normal, anicteric sclerae ENMT: external ear and nose normal, oropharynx normal Neck: trachea midline, no thyromegaly Respiratory: normal respiratory effort, lungs clear to auscultation Cardiovascular: RRR, no murmur, no edema Gastrointestinal (Abdomen): normal bowel sounds, soft, nontender, no hepatosplenomegaly Musculoskeletal: no cyanosis or clubbing, extremities motor strength 5/5 Skin: no rashes, warm and dry Neurologic: patellar DTR's 2+ bilat, sensation intact Psychiatric: A+Ox3, euthymic affect Genitourinary: no vaginal lesions, no adnexal mass Results & Data Vital Signs (Past 12 Hours) Vital Signs Temp Pulse Pulse Resp BP Pulse Ox O2 Del Method 06/05/24 15:16 36.7 C 103 H 19 122/77 100 Room Air 06/05/24 14:45 83 06/05/24 11:08 36.7 C 107 H 17 100/83 99 Room Air 06/05/24 08:12 36.9 C 80 17 121/79 99 Room Air
[2024-06-06] MEDS: AMOXICILLIN 500 MG CAP PO SCH (02:23)
[2024-06-06 07:01] LABS: Hematocrit (blood only) 30.4 % (37.0-47.0); Hemoglobin 10.8 g/dl (12.0-16.0); Mean Corpuscular Hemoglobin 24.3 pg (25.0-34.0); Mean Corpuscular Hgb Conc 35.5 g/dL (32.0-36.0); Mean Corpuscular Volume 68.3 fL (80.0-100.0); Platelet Count 138 K/uL (130-400); RDW Coefficient of Variation 18.4 % (11.5-14.5); RDW Standard Deviation 44.5 fL (36.4-46.3); Red Blood Count 4.45 M/uL (4.20-5.40)
[2024-06-06 07:25] LABS: Albumin Globulin Ratio 1.3 (0.9-2); Albumin Level 3.9 gm/dl (3.4-5.0); BUN Creatinine Ratio 7.8 (10-20); Bilirubin,Total 1.8 mg/dl (0.2-1.0); Calcium 8.9 mg/dl (8.6-10.3); Creatinine Clr Calc Pharmacy 172.5 ml/min; Potassium 3.8 mmol/L (3.5-5.1); Total Protein 6.9 gm/dl (6.0-8.3)
[2024-06-06] MEDS: ENOXAPARIN INJ 40 MG/0.4 ML SYR SQ SCH (08:10)
[2024-06-06] MEDS: COUGH DROP (SUGAR FREE) LOZ 24 LOZ/1 BOX BUCCAL ONE (12:22)
--- NOTE | 2024-06-06 16:29 | Hospitalist Progress Note ---
Date of Service June 06, 2024 Assessment & Plan (1) Sickle cell pain crisis: (2) Strep pharyngitis: Plan 18-year-old female PMHx sickle cell disease presenting to ED for chest pain x 1 day with associated LUQ pain and myalgias. Was seen at [facility], and referred to ED. Reports she has been having fairly consistent pain in the L chest that has been ongoing since the Tuesday [employer], with radiation to middle of chest. States that her most recent crises was 1 month ago, affecting her R arm and described the symptoms as numbness and tingling for approximately 1 week. No history of acute chest syndrome. No longer on hydroxyurea secondary to rash that she got over her torso while taking. #Sickle cell crisis Pain pattern different from prior crises, she has never had back pain with prior crises. No h/o ACS. -hgb 10.8, CMP bilirubin 1.8; lactate dehydrogenase 253, reticulocytes 0.150 -CXR w/o infiltrates or acute findings -Chest CTA reports stating imaging is nondiagnostic for evaluation of potential PE given heterogeneous enhancement pattern of the pulmonary artery tree as well as extensive respiratory artifact. -Reached out to Dr. Oakley for 2nd read of CTA - he was unable to visualize PE, recommended repeat CTA vs doppler if concerned -Doppler US b/l LE negative for DVT - D-dimer mildly elevated at 730 on 06/05 - suspect secondary to sickle cell crisis. Given D-Dimer not overtly elevated above normal, patient is without shortness of breath, not requiring oxygen, and pain improving on pain medication PE less likely. -In the event patient does develop SOB requiring oxygen consider repeat imaging -IC + encourage ambulation to prevent acute chest; O2 ordered -Pain management as ordered - Dilaudid, Toradol -Dilaudid switched to prn on 06/06 given patient refusing scheduled doses. -Hematology consulted - recommending IVF, consider hydroxyurea on outpatient basis. #Strep Pharyngitis Patient reports sore throat and tested + for strep Continue Amoxicillin 500mg BID Anticipate discharge home 06/07 pending pain stabilization. Dispo: Admit, PCU VTE prophylaxis: Lovenox Admission and Anticipated Discharge Date Admission Date: June 04, 2024 Subjective Patient seen and examined this morning. Patient reports that her pain in her chest and abdomen is improving. She had refused ~2 doses of IV Diluadid overnight. She did develop a sore throat overnight and tested positive for strep. She remains afebrile and tachycardia has improved. She denies SOB. She reports muscle spasms in her upper back. Denies N/V Physical Exam Constitutional: WD/WN, vitals as above Eyes: PERRL, conjunctivae normal, anicteric sclerae Respiratory: normal respiratory effort, lungs clear to auscultation Cardiovascular: RRR, no murmur, no edema Psychiatric: A+Ox3, euthymic affect Results & Data Results & Data Vital Signs (Past 12 Hours) Vital Signs Temp Pulse Resp BP Pulse Ox O2 Del Method 06/06/24 14:38 36.9 C 82 15 106/68 99 Room Air 06/06/24 11:05 36.8 C 95 H 18 106/64 100 Room Air 06/06/24 07:34 37.3 C 16 101/60 99 Room Air PG Care Time/CCT Total # of Minutes Spent Total Time Spent with Patient: Total time spent is greater than 50% in coordination of care (as documented) at patient's floor/unit and/or counseling patient: Coding Level of Care Code 15069 SUB INP/OBS CARE 2/35MIN Diagnoses Sickle cell pain crisis D57.00 Strep pharyngitis J02.0
[2024-06-07 06:59] LABS: Hematocrit (blood only) 32.2 % (37.0-47.0); Hemoglobin 11.4 g/dl (12.0-16.0); Mean Corpuscular Hemoglobin 24.4 pg (25.0-34.0); Mean Corpuscular Hgb Conc 35.4 g/dL (32.0-36.0); Platelet Count 146 K/uL (130-400); RDW Coefficient of Variation 18.3 % (11.5-14.5); RDW Standard Deviation 44.8 fL (36.4-46.3); Red Blood Count 4.67 M/uL (4.20-5.40); White Blood Count 5.67 K/ul (4.8-10.8)
[2024-06-07 07:10] LABS: BUN Creatinine Ratio 14.5 (10-20); Calcium 9.2 mg/dl (8.6-10.3); Creatinine Clr Calc Pharmacy 200.7 ml/min; Potassium 3.9 mmol/L (3.5-5.1)
[2024-06-07 07:50] VITALS: RESP 19; O2SAT 98
--- NOTE | 2024-06-07 10:13 | Discharge Summary ---
Discharge Summary Date of Service June 07, 2024 Principal Dx & Hospital Course #1 = Principal Diagnosis (1) Sickle cell pain crisis: (2) Strep pharyngitis: Plan 18-year-old female PMHx sickle cell disease presenting to ED for chest pain x 1 day with associated LUQ pain and myalgias. Was seen at [facility], and referred to ED. Reports she has been having fairly consistent pain in the L chest that has been ongoing since the Tuesday [employer] DESIGN[employer], with radiation to middle of chest. States that her most recent crises was 1 month ago, affecting her R arm and described the symptoms as numbness and tingling for approximately 1 week. No history of acute chest syndrome. No longer on hydroxyurea secondary to rash that she got over her torso while taking. #Sickle cell crisis Pain pattern different from prior crises, she has never had back pain with prior crises. No h/o ACS. -CBC/CMP stable. -CXR w/o infiltrates or acute findings -Chest CTA reports stating imaging is nondiagnostic for evaluation of potential PE given heterogeneous enhancement pattern of the pulmonary artery tree as well as extensive respiratory artifact. -Reached out to Dr. Oakley for 2nd read of CTA - he was unable to visualize PE, recommended repeat CTA vs Doppler if concerned -Doppler US b/l LE negative for DVT - D-dimer mildly elevated at 730 on 06/05 - suspect secondary to sickle cell crisis. Given D-Dimer not overtly elevated above normal, patient is without shortness of breath, not requiring oxygen, and pain improving on pain medication PE less likely. -Hematology consulted - recommending IVF, consider hydroxyurea on outpatient basis. -Discharged home w/ recommendations to use Tylenol and ibuprofen for pain. Patient reports she has oxycodone at home prescribed by her tow bar driver from [facility]. Advised patient she has not required narcotics in ~24 hours but to use her pre-existing oxycodone prescription if she does require narcotics to control pain. She verbalized her understanding. -Patient to follow up w/ her tow bar driver on her upcoming spring. #Strep Pharyngitis Patient reports sore throat and tested + for strep Continue Amoxicillin 500mg BID on discharge for additional 6 days Discharged home 06/07. Admission HPI Per Admitting Provider 18-year-old female PMHx sickle cell disease presenting to ED for chest pain x 1 day with associated LUQ pain and myalgias. Was seen at [facility], and referred to ED. Reports she has been having fairly consistent pain in the L chest that has been ongoing since the Tuesday [employer] DESIGN[employer], with radiation to middle of chest. States that the pain worsened over the weekend specifically on the day prior to arrival, so she went to [facility] to have testing completed and was encouraged to come to ED. Also reporting LUQ abdominal pain with associated history of splenomegaly. Has utilized ibuprofen at home but has not noticed much improvement in her symptoms. During admitting evaluation, patient states that her pain is currently 9/10 on the pain scale, and has worsened since her last dose of pain medications. Additionally she is having some SOB, and it is noted that when she takes a deep breath she feels that this is a stabbing type pain. At rest, patient describes the pain as jabbing and heavy pressure on her central chest. Did have 3 episodes of emesis with ongoing nausea. 1 episode of dizziness when she was resting in the bed, no lightheadedness or feeling of syncope. States that her most recent crises was 1 month ago, affecting her R arm and described the symptoms as numbness and tingling for approximately 1 week. Of note, male in room during the visit states that the patient's heart rate jumped into the 160s and came down to 140s and this lasted for approximate 30 to 40 minutes until settling in the 100s-110s. During the time of this episode, the patient states that she was having pain but did not feel any additional symptoms. No history of acute chest syndrome. No longer on hydroxyurea secondary to rash that she got over her torso while taking. Denying palpitations, diarrhea/constipation, numbness/tingling, fever or chills. Is having slight sore throat and coughing, no known sick contacts. Testing for mono, strep, flu, and covid negative at outpatient evaluation. ED evaluation reveals no indications of infection, grossly unremarkable CMP with exception of total bilirubin 2.2 and ALT 6. CXR was negative for acute findings, and chest CTA is nondiagnostic. EKG reveals sinus rhythm with PVCs and rate of 86 bpm. Patient was provided with 2.5L NSS in ED as well as oxycodone 5 mg p.o., Zofran 4 megs IV x 2, ketorolac 30 mg IV total, Dilaudid 3 mg IV total, and Tylenol [address] Pedraza's attestation for adjustments/additions to treatment plan. Discharge Exam Constitutional WD/WN, vitals as above Eyes PERRL, conjunctivae normal, anicteric sclerae Respiratory normal respiratory effort, lungs clear to auscultation Cardiovascular RRR, no murmur, no edema Psychiatric A+Ox3, euthymic affect Discharge Plan Discharge Items Patient Disposition: Home - Self-Care Reason For Visit: SICKLE CELL CRISIS Discharge Diagnosis: Sickle Cell Crisis, Strep throat Activity: Resume your previous activity Non-emergency contact: Primary Care Provider and Oncologist Call non-emergency contact if: you have any medication questions and your symptoms worsen Follow-up/Referrals: KASSIDY BOBO [Other] Diet: Regular Addtl Attending Provider Instructions: Ms. Chavarria, You were recently hospitalized for chest pain and were found to be in a sickle cell crisis. While you were here, you developed a sore throat and tested positive for Strep. Please see recommendations below regarding your discharge. 1. Please take Amoxicillin 500 mg twice daily for the next 6 days. Your first dose at home will be this evening, 06/07. Consider taking with food to avoid GI upset. 2. Please use Tylenol and Ibuprofen for any lingering pain from your Sickle Cell Crisis. Please use your oxycodone that is prescribed by your tow bar driver for severe pain. 3. Please follow up with your tow bar driver over spring. 4. Please follow up with [facility] if you are still experiencing symptoms from strep throat after you complete the antibiotic. If you develop any worsening chest pain, shortness of breath, fever, chills please report back to the ER for further care. Sincerely, Charito Lema PA-C Pending Studies at Discharge: No Stand-Alone Forms: My [employer], Smoking Cessation Medications and DC Order Prescriptions: New amoxicillin 500 mg Capsule 500 mg PO BID Qty: 11 0RF Discharge Orders: Discharge Order (Routine); Ordered 06/07/24 Ordered By: Charito Lema Admission Data Admit Date/Time: 06/04/24 23:14 Attending Provider: Hayden Sinha Admit Provider: Ansley Pedraza Primary Care Provider: KASSIDY BOBO Other Providers: Ansley Pedraza; Aaliyah Draper; Leslie Seymour; Aj Douglass; Charley Kent; Gaviota Palafox; Gaston Aguillon; Tita Culp; Benny,No Attending Other Interventions: Discharge Summary Assessment (RN) Last Done: 06/07/24 10:50 Hospital Stay Data Consultations 06/04/24 23:03 ED Decision to Admit Stat 06/05/24 08:11 Consult Hematology Routine Diagnostic Imagining Performed 06/04/24 20:45 CT angio chest PE protocol Stat 06/05/24 08:46 US venous doppler LE BI Urgent Pending Results Patient Have Any Pending Studies at Discharge: No Discharge Instructions Given to Patient (Per Discharging Provider) Ms. Chavarria, [place] were recently hospitalized for chest pain and were found to be in a sickle cell crisis. While you were here, you developed a sore throat and tested positive for Strep. Please see recommendations below regarding your discharge. 1. Please take Amoxicillin 500 mg twice daily for the next 6 days. Your first dose at home will be this evening, 06/07. Consider taking with food to avoid GI upset. 2. Please use Tylenol and Ibuprofen for any lingering pain from your Sickle Cell Crisis. Please use your oxycodone that is prescribed by your tow bar driver for severe pain. 3. Please follow up with your tow bar driver over spring. 4. Please follow up with [facility] if you are still experiencing symptoms from strep throat after you complete the antibiotic. If you develop any worsening chest pain, shortness of breath, fever, chills please report back to the ER for further care. Sincerely, Charito Lema PA-C Total Time Total Time Spent Total Time Spent (In Minutes): 45 Total Time Includes: Examination of the Patient, Discharge Planning and Medication Reconciliation Coding Level of Care Code 10923 INP/OBS DISCH >30 MIN Diagnoses Sickle cell pain crisis D57.00 Strep pharyngitis J02.0
[2024-06-07 11:00] VITALS: BP 124/76; PULSE 79; TEMP 98.1
== END 2024-06-07 12:07 | disposition home or self-care (01) | DRG 812 ==
LOC: ED 11:07 → 2E 23:14 → SUATTDRO 23:14 → 2E 06-05 00:38